=== PATIENT | male | born 1970 | race Asian ===

== ENCOUNTER 2025-09-09 11:44 | Emergency (ER) | payer MEDICAID ==
[~2025-09-09] VITALS: Ht 177.8 cm; Wt 95.0 kg
[2025-09-09 11:47] VITALS: O2SAT 99
[2025-09-09 12:22] LABS: BASOPHILS % 1.0 % (0.0-2.0); EOSINOPHILS % 2.0 % (0.0-5.0); HEMATOCRIT. 46.0 % (42.0-52.0); HEMOGLOBIN. 15.3 g/dL (14.0-18.0); LYMPHOCYTES % 20.5 % (20.0-50.0); MEAN PLATELET VOLUME 7.8 fl (7.4-10.4); MONOCYTES % 6.3 % (2.0-8.0); NEUTROPHILS % 70.2 % (40.0-76.0); PLATELET 313 x1000/uL (130-400); RED BLOOD CELL COUNT 5.31 mill/uL (4.7-6.1); RED CELL DISTRIBUTION WIDTH 13.6 % (11.6-14.6)
[2025-09-09 12:40] LABS: CREATININE 1.0 mg/dL (0.6-1.3)
[2025-09-09 12:41] LABS: UREA NITROGEN BLOOD 10 mg/dL (9-23)
[2025-09-09 12:42] LABS: TROPONIN I HIGH SENSITIVITY 18 ng/L (3.0-53)
[2025-09-09 12:43] LABS: ASPARTATE AMINOTRANSFERASE 18 IU/L (<34); BILIRUBIN DIRECT 0.1 mg/dL (<=3.0); BILIRUBIN TOTAL 0.3 mg/dL (0.1-1.0); PROTEIN TOTAL 7.6 g/dL (6.0-8.3)
[2025-09-09 12:47] LABS: INR 1.0
[2025-09-09 14:00] VITALS: BP 173/103; PULSE 58; RESP 16; TEMP 36.8; O2SAT 98
[2025-09-09] MEDS: AMLODIPINE 5MG TABLET PO ONE (14:15)
[2025-09-09 15:17] LABS: TROPONIN I HIGH SENSITIVITY 21 ng/L (3.0-53)
[2025-09-09] MEDS ORDERED: FAMOTIDINE 20MG TABLET PO ONE (15:45)
[2025-09-09] MEDS ORDERED: MAGNESIUM/ALUMINUM HYDROXIDE/SIMETHICONE 30ML UDC PO ONE (15:45)
[2025-09-09] MEDS ORDERED: AMLO5TAB88 MT (15:47)
== END 2025-09-09 16:27 | disposition home or self-care (01) ==
LOC: EDBD 11:44 → ER 11:44 → EDBEDREQ 12:00 → CANBEDREQ 16:04 → ER 16:27
DX: R07.89 Other chest pain (principal); R91.1 Solitary pulmonary nodule; I10 Essential (primary) hypertension; Z87.891 Personal history of nicotine dependence
CPT/HCPCS: 80076; 80048; 80320; 83880; 83690; 85025; 85610; 85730; 84484; 36415; 71045; 93005; 99285; Z7610; G0480